=== PATIENT | male | born 1970 | race Caucasian/White ===

== ENCOUNTER 2017-08-16 09:57 | Day surgery (SDC) | payer OTHER ==
[~2017-08-16 09:57] MED LIST: CEFAZOLIN 1 GM INJ; CEFAZOLIN 2 GM/50 ML (PMX) 50 ML IVPB; DEXAMETHASONE 4 MG/ML 1 ML INJ; FENTAnyl 50 MCG/ML VIAL; SOD CHLORIDE 0.9% 1,000 ML IV; SUCCINYLCHOLINE CHLORIDE 100 MG/5 ML SYG IV
[2017-08-16] MEDS ORDERED: POLYMYXIN/BACITRACIN 1L IRRIG (14:12)
[2017-08-16] MEDS ORDERED: CEFAZOLIN 1 GM INJ (14:14)
[2017-08-16] MEDS ORDERED: PROPOFOL 20 ML (14:14)
[2017-08-16] MEDS ORDERED: NEOSTIGMINE 3 MG/3 ML SYRINGE (14:14)
[2017-08-16] MEDS ORDERED: ROCURONIUM 50 MG INJ (14:14)
[2017-08-16] MEDS ORDERED: GLYCOPYRROLATE 0.4 MG INJ (14:14)
[2017-08-16] MEDS ORDERED: MIDAZOLAM 1 MG/ML 2 ML INJ (14:15)
[2017-08-16] MEDS ORDERED: ONDANSETRON 4 MG INJ (14:15)
[2017-08-16] MEDS ORDERED: SUGAMMADEX SODIUM 200 MG/2 ML VIAL IV ×2 (14:24→15:23)
[2017-08-16] MEDS ORDERED: FENTAnyl 50 MCG/ML VIAL IV ×2 (14:30)
[2017-08-16] MEDS ORDERED: MIDAZOLAM 1 MG/ML 2 ML INJ IV (14:30)
[2017-08-16] MEDS ORDERED: hydrALAzine 20 MG INJ IV (14:30)
[2017-08-16] MEDS ORDERED: HYDROmorphONE 1 MG/5 ML IV SYRINGE IV ×2 (14:30)
[2017-08-16] MEDS ORDERED: DIPHENHYDRAMINE 50 MG INJ IV (14:30)
[2017-08-16] MEDS ORDERED: OXYCODONE/ACETAMINOPHEN (5/325) TAB PO ×2 (14:30)
[2017-08-16] MEDS ORDERED: IPRATROPIUM (NEB) 0.5 MG/2.5 ML AMP HHN (14:30)
[2017-08-16] MEDS ORDERED: ALBUTEROL 0.083% (NEB) 2.5 MG/3 ML AMP HHN (14:30)
[2017-08-16] MEDS ORDERED: EPHEDrine SULFATE 50 MG/5 ML SYG IV (14:30)
[2017-08-16] MEDS ORDERED: TRIMETHOBENZAMIDE 100 MG/ML VIAL IM (14:30)
[2017-08-16] MEDS ORDERED: LABETALOL HCL 20MG INJ IV (14:30)
[2017-08-16] MEDS ORDERED: FENTAnyl 50 MCG/ML VIAL (15:12)
[2017-08-16] MEDS: BUPIVACAINE 0.25% (MPF) 30 ML INJ (15:18)
[2017-08-16] MEDS ORDERED: KETOROLAC 30 MG INJ (15:23)
[2017-08-16] MEDS: HYDROmorphONE 1 MG/5 ML IV SYRINGE IV (15:57)
[2017-08-16] MEDS: FENTAnyl 50 MCG/ML VIAL IV (15:59)
[2017-08-16] MEDS: ONDANSETRON 4 MG INJ IV (16:00)
[2017-08-16] MEDS: MEPERIDINE 25 MG INJ IV (16:01)
[2017-08-16] MEDS: HYDROCODONE/APAP (5/325) TAB PO (16:26)
== END 2017-08-16 17:41 | disposition home or self-care (01) ==
LOC: SDS 09:57
DX: K43.9 Ventral hernia without obstruction or gangrene (principal)
CPT/HCPCS: 49653